=== PATIENT | female | born 1990 | race Caucasian/White ===

== ENCOUNTER 2016-08-16 21:30 | Emergency (ER) | payer MEDICAID ==
[2016-08-16 22:06] LABS: % IMMATURE GRANULYOCYTES 0.2 % (0.0-1.1); ABSOLUTE IMMATURE GRANULOCYTES 0.02 10^3/uL (0.00-0.10); ADD DIFF? NO; ADD MORPH? NO; ADD SCAN? NO; ATYPICAL LYMPHOCYTE FLAG 0 (0-99); FRAGMENT RBC FLAG 0 (0-99); HEMATOCRIT 39.4 % (38.0-47.0); HEMOGLOBIN 13.8 g/dL (12.6-16.3); LEFT SHIFT FLG 0 (0-99); LIPEMIA HEMOLYSIS FLAG 90 (0-99); MEAN CELL HEMOGLOBIN 34.2 pg (27.9-34.1); MEAN CELL VOLUME 97.8 fL (81.5-99.8); MEAN PLATELET VOLUME 8.4 fL (8.7-11.7); PLATELET CLUMPS FLAG 10 (0-99); PLATELET COUNT 399 10^3/uL (150-400); RED BLOOD CELL COUNT 4.03 10^6/uL (4.18-5.33); RED CELL DISTRIBUTION WIDTH 12.4 % (11.5-15.2)
[2016-08-16] MEDS ORDERED: OLANZapine DISINTEGR 10 MG TAB ONE (22:08)
[2016-08-16 22:12] LABS: ANION GAP 11 mEq/L (8-16); CARBON DIOXIDE 17 mEq/l (22-31); CHLORIDE 111 mEq/L (97-110); CREATININE 0.8 mg/dL (0.6-1.0); ETHANOL SERUM < 10 mg/dL (0-10); GLOMERULAR FILTRATION RATE > 60; GLUCOSE 108 mg/dL (70-100); POTASSIUM 3.6 mEq/L (3.5-5.2); SODIUM 139 mEq/L (134-144)
[2016-08-16] MEDS ORDERED: OLANZapine DISINTEGR 10 MG TAB PO ONE (22:18)
--- NOTE | 2016-08-16 23:55 | EDPHY ---
H & P Stated Complaint: SI/HI (toward neighbor), delusional - Personal History Current Tetanus/Diphtheria Vaccine: Unsure Current Tetanus Diphtheria and Acellular Pertussis (TDAP): Unsure - Medical/Surgical History Hx Asthma: No Hx Chronic Respiratory Disease: No Hx Diabetes: No Hx Cardiac Disease: No Hx Renal Disease: No Hx Cirrhosis: No Hx Alcoholism: No Hx HIV/AIDS: No Hx Splenectomy or Spleen Trauma: No - Social History Smoking Status: Current every day smoker Time Seen by Provider: 08/16/16 21:48 HPI/ROS: Chief Complaint: Paranoid, hallucinating HPI: 25-year-old female brought in by EMS after patient has been getting increasingly paranoid and convince that her neighbors talking. Patient states she hears her neighbor talking about her through the [place]ontal[place]. Patient also states she hears her neighbor when she is not even at home. Patient is beginning increasingly agitated over the last days. Patient does have a history of benzodiazepine and opioid use in the past. No reported use of hallucinations or methamphetamines per EMS report from boyfriend. Patient is quite delusional and is not able to provide me with any further history. Patient is quite upset with the belief that her neighbors talking better. She does admit that her boyfriend does not hear her when she is hearing her neighbor talk. Does not have a history of similar experiences in the past. ROS: 10 point Review of Systems is negative except as noted in the HPI. PMH: None Social History: Positive for smoking, positive for alcohol, history of opioid and benzodiazepine use Family History: non-contributory Physical Exam: Gen: Awake, Alert, disheveled, anxious appearing HEENT: Nose: no rhinorrhea Eyes: PERRLA, EOMI Mouth: Moist mucosa Neck: Supple, no JVD Chest: nontender, lungs clear to auscultation Heart: S1, S2 normal, no murmur Abd: Soft, non-tender, no guarding Back: no CVA tenderness, no midline tenderness Ext: no edema, non-tender Skin: no rash Neuro: CN II-XII intact, Sensation grossly intact, Strength 5/5 in bilateral upper and lower extremities (Oliver Hart) 181: Patient has been seen evaluated by mental health. They do not feel this patient benefit from inpatient psychiatric hospitalization. They would like to discharge this patient. I did discuss this with the patient as well as family at bedside they are comfortable with her going home. She tells me she is not suicidal not homicidal she is not acutely psychotic. She does have some paranoia. She has insight into this process. She will follow up outpatient she does understand return to the emergency room if she has any further symptoms questions or concerns including thoughts of harming herself or somebody else. (Lyndon Bales) Constitutional: Initial Vital Signs Temperature (C) 36.9 C 08/16/16 21:37 Heart Rate 107 H 08/16/16 21:37 Respiratory Rate 18 08/16/16 21:37 Blood Pressure 132/99 H 08/16/16 21:37 O2 Sat (%) 95 08/16/16 21:37 O2 Delivery Mode Room Air Allergies/Adverse Reactions: No Known Allergies Allergy (Unverified 08/16/16 21:40) Home Medications: Medication Instructions Recorded Ativan? 08/16/16 Percocet 5/325 (*) 08/16/16 morphINE 08/16/16 Medical Decision Making ED Course/Re-evaluation: Patient presenting with symptoms of paranoia and auditory hallucinations, believes that her neighbors talking better. Boyfriend who is present at that time is not hearing any voices. Patient does have a history of substance abuse but no hallucinogenic substances. She will need medical clearance and mental health evaluation. 0700 Patient signed out to Dr. Fisher pending mental health evaluation. (Oliver Hart) 1500 Care of this patient was transferred to Dr. Bales at change of shift. The patient has remained stable during my shift and is pending mental health evaluation. (Humza Fisher) - Data Points Laboratory Results: Laboratory Results 08/16/16 21:45 08/16/16 21:45 Medications Given: Discontinued Medications Lorazepam (Ativan) 0.5 mg PO EDNOW ONE Stop: 08/17/16 14:46 Last Admin: 08/17/16 14:47 Dose: 0.5 mg Olanzapine (Zyprexa Zydis) 10 mg PO EDNOW ONE Stop: 08/16/16 22:19 Last Admin: 08/16/16 22:28 Dose: 10 mg Departure - Departure Disposition: Home, Routine, Self-Care Clinical Impression: Paranoid Condition: Good Instructions: Anxiety (ED) Additional Instructions: 1. Please return emergency room if you have any worsening symptoms questions or concerns if you have passive thoughts of harming herself or somebody else return immediately to the ER. Referrals: Patient,NotPresent [Primary Care Provider] - As per Instructions
[2016-08-17] MEDS ORDERED: LORazepam 0.5 MG TAB ONE (14:23)
[2016-08-17] MEDS ORDERED: LORazepam 1 MG TAB PO ONE (14:45)
[2016-08-17 18:23] VITALS: BP 115/71; PULSE 78; RESP 16; TEMP 98.6; O2SAT 96
== END 2016-08-17 18:21 | disposition home or self-care (01) ==
DX: F22 Delusional disorders (principal); F17.200 Nicotine dependence, unspecified, uncomplicated
CPT/HCPCS: 80305; G0480